=== PATIENT | male | born 1975 | race African-American/Black ===

== ENCOUNTER 2020-02-17 07:12 | Outpatient (REF) | payer MEDICARE, MEDICAID, SELFPAY | END 2020-02-17 07:13 | disposition home or self-care (01) | LOC: HO.LAB 07:12 | PROVIDERS: Visit Provider Internal Medicine | DX: Z20.828 Contact with and (suspected) exposure to other viral communicable diseases (principal) | CPT/HCPCS: C9803; U0003 ==

== ENCOUNTER 2020-03-03 08:13 | Outpatient (REF) | payer MEDICARE, MEDICAID, SELFPAY | END 2020-03-03 08:14 | disposition home or self-care (01) | LOC: HO.LAB 08:13 | PROVIDERS: Visit Provider Internal Medicine | DX: Z20.828 Contact with and (suspected) exposure to other viral communicable diseases (principal) | CPT/HCPCS: C9803; U0003 ==

== ENCOUNTER 2020-12-07 09:42 | Outpatient (REF) | payer MEDICARE, MEDICAID, SELFPAY | END 2020-12-07 09:43 | disposition home or self-care (01) | LOC: HO.LAB 09:42 | PROVIDERS: Visit Provider Internal Medicine | DX: Z20.822 Contact with and (suspected) exposure to COVID-19 (principal) | CPT/HCPCS: C9803; U0003; U0005 ==

== ENCOUNTER 2021-05-20 11:04 | Inpatient (IN) | payer MEDICARE, MEDICAID, SELFPAY ==
[2021-05-20 11:13] VITALS: BP 110/70; BP 130/85; PULSE 86; PULSE 95; RESP 18; TEMP 36.5; O2SAT 96; O2SAT 98; BMI 26.9
[2021-05-20 12:01] LABS: Appearance Urine CLEAR; Color Urine YELLOW; Glucose Urine UA NEG (NEG); Leukocyte Esterase Urine NEG (NEG); Nitrite Urine NEG (NEG); PH 5.5 (5.0-8.0); Specific Gravity - Urine >= 1.030 (1.005-1.025); Urine Blood NEG (NEG); Urine Ketones NEG (NEG); Urine Protein NEG (NEG-TRACE)
[2021-05-20 12:03] LABS: MANUAL DIFF FLAG NO
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
[2021-05-20 12:06] LABS: Amphetamine Screen Urine Not Detected (Not Detect); Barbiturates, Urine Not Detected (Not Detect); Benzodiazepines Screen Urine Not Detected (Not Detect); Cannabinoid Screen Urine POSITIVE (Not Detect); Cocaine Screen Urine Not Detected (Not Detect); Fentanyl, urine Not Detected (Not Detect); Opiate Screen Urine Not Detected (Not Detect); Phencyclidine Screen Urine Not Detected (Not Detect)
[2021-05-20 12:06] LABS: Basophils Absolute Auto 0.1 X10*3/uL (0.0-0.2); Basophils Percent Auto 1.5 % (0-2); Hematocrit 47.8 % (42.0-52.0); Hemoglobin 16.2 g/dl (14.0-18.0); Imm Gran Abs Auto 0.01 X10*3/uL (0.00-0.03); Imm Gran Pct Auto 0.3 % (0.0-0.4); Lymphocytes Absolute Auto 1.9 X10*3/uL (1.2-4.9); Lymphocytes Percent Auto 49.1 % (20-40); Mean Corpuscular HGB Conc 33.9 g/dl (31.0-36.0); Mean Corpuscular Hemoglobin 32.5 pg (27.0-33.0); Mean Corpuscular Volume 95.8 fL (80.0-98.0); Mean Platelet Volume 8.7 fL (9.4-12.4); Monocytes Absolute Auto 0.3 X10*3/uL (0.1-1.2); Monocytes Percent Auto 6.6 % (2-11); Neutrophils Absolute Auto 1.6 x10*3/uL (2.0-8.3); Neutrophils Percent Auto 41.5 % (45-73); Platelet Count 242 X10*3/uL (160-400); Red Blood Count 4.99 X10*6/uL (4.60-5.80); Red Cell Distribution Width 13.6 % (11.0-16.0)
[2021-05-20 12:21] LABS: Anion Gap 13 (12-20); Blood Urea Nitrogen 14 mg/dL (9-16); Calcium 9.5 mg/dL (8.4-10.2); Carbon Dioxide 29 mmol/L (22-29); Chloride 102 mmol/L (96-108); Creatinine Clr Calc Pharmacy 99.4; Estimated Glomerular Filt Rate > 60; Glucose Random 93 mg/dL (60-115); Potassium 4.4 mmol/L (3.3-5.1); Sodium 140 mmol/L (135-145)
[2021-05-20 13:54] VITALS: BP 100/69; PULSE 68; RESP 16; O2SAT 94
[2021-05-20 14:42] LABS: COVID-19 Test Negative (Negative); IDNOW Serial# 08D9AD1C
--- NOTE | 2021-05-20 14:49 | PC.NURSE ---
rn to rn given jarrett, pt aware of plan of care for transfer to pod.
[2021-05-20] MEDS: LORazepam 1 MG TABLET PO (17:04)
[2021-05-20 17:43] LABS: Ethanol 80 mg/dL
--- NOTE | 2021-05-20 19:29 | PHA.MEDREC ---
Pharmacy Consult ? Medication Reconciliation Pharmacy has completed the medication reconciliation. pt reports trazodone dose lowered to 50 mg. pt takes sertraline at lunch. He also reports taking gabapentin but has not been filled since September. Pt has not taken any of his medications in about 2 weeks.
[2021-05-20 21:50] VITALS: BP 145/95; PULSE 95; RESP 18; O2SAT 98
[2021-05-20] MEDS: Gabapentin 300 MG CAPSULE PO (23:19)
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
[2021-05-21] MEDS: Multivitamin TABLET 1 TAB PO (08:28)
[2021-05-21] MEDS: Gabapentin 300 MG CAPSULE PO ×3 (08:28→21:34)
[2021-05-21] MEDS: NaPROXEN 500 MG TABLET PO ×2 (08:28→21:34)
[2021-05-21 08:41] VITALS: BP 131/81; PULSE 74; RESP 17; TEMP 36.9; O2SAT 99
[2021-05-21 08:48] LABS: Cholesterol 331 mg/dL; HDL Cholesterol 82 mg/dL; Magnesium 2.1 mg/dL (1.6-2.6); Triglycerides 419 mg/dL
[2021-05-21 08:59] LABS: Estimated Average Glucose 100 mg/dL; Hemoglobin A1c % 5.1 %
[2021-05-21 09:07] LABS: Thyroid Stimulating Hormone 4.18 uIU/mL (0.32-4.0)
--- NOTE | 2021-05-21 12:46 | MHC.RECOVSUP ---
TRY TO MEET WITH PT. TWO TIMES PT.WAS BEING SEEN BY THE DOCTOR THE FIRST. AND THE SECOND TIME HE STATED THAT HW WAS BUSY. THIS ARCHITECT WAS ABLE TO LEAVE MY CARD WITH STAFF.
[2021-05-21 13:08] LABS: Folate 13.3 ng/mL (> or = 4.0); Vitamin B12 357 pg/mL (200-900)
[2021-05-21] MEDS: Sertraline HCL 50 MG TABLET PO (14:04)
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
[2021-05-21 21:20] VITALS: BP 150/92; PULSE 97; TEMP 36.2; O2SAT 98
[2021-05-21] MEDS: hydrOXYzine HCL 25 MG TABLET PO (21:35)
[2021-05-21] MEDS: Doxazosin Mesylate 1 MG TABLET PO (21:36)
[2021-05-22] MEDS: Multivitamin TABLET 1 TAB PO (08:24)
[2021-05-22] MEDS: Gabapentin 300 MG CAPSULE PO ×3 (08:24→20:50)
[2021-05-22] MEDS: NaPROXEN 500 MG TABLET PO ×2 (08:24→20:51)
[2021-05-22 08:33] VITALS: BP 135/82; PULSE 76; RESP 18; TEMP 36.4; O2SAT 97
--- NOTE | 2021-05-22 09:54 | HO.PSYCHPN ---
Subjective Subjective Date of Service: 05/22/21 Reason For Visit: Depression, SI Subjective Notes: Conditional Voluntary Medical Problems Affecting Mental Status: No Interim History: pt reports he did not sleep well last night. does not think he started doxazosin yet. discussed medication purpose and expected results. He is afraid to take zyprexa with it until he gets used to/familiar with response to sleep meds Medication Compliance: Intermittent Side effects from medications: No Attending Groups: Intermittent Review of Systems Acute medical concerns: No Medical Review of Systems: unchanged Review of Systems Review of Systems no changes Mental Status Exam Mental Status Exam Narrative: appropriately dressed and groomed. cooperative with interview, anxious, speech nml rate, amount, tone, latency. thoughts linear and logical without evidence of paranoia or delusions. affect constricted, normo-intense, non-labile, consistent with context. mood depressed and anxious. reports SI with no paln or intent. denies HI. denies AH, Judgement: Fair Diagnostics Vital Signs (24Hr): Vital Signs - 24 hr 05/21/21 21:20 05/22/21 08:33 Temperature 97.2 F 97.6 F Pulse Rate 97 76 Respiratory Rate 18 Blood Pressure 150/92 H 135/82 Pulse Oximetry 98 97 BMI result Body Mass Index 26.9 Labs Results: 05/20/21 11:58 05/20/21 11:58 Labs: Laboratory Results - last 48 hr 05/20/21 05/20/21 05/20/21 11:41 11:41 11:58 WBC 4.0 L RBC 4.99 Hgb 16.2 Hct 47.8 MCV 95.8 MCH 32.5 MCHC 33.9 RDW 13.6 Plt Count 242 MPV 8.7 L Immature Gran % (Auto) 0.3 Neut % (Auto) 41.5 L Lymph % (Auto) 49.1 H [place] % (Auto) 6.6 Eos % (Auto) 1.0 Baso % (Auto) 1.5 Lymph # (Auto) 1.9 [place] # (Auto) 0.3 Eos # (Auto) 0.0 Baso # (Auto) 0.1 Abs Immat Gran (auto) 0.01 Absolute Neuts (auto) 1.6 L Absolute Nucleated RBC 0.000 Nucleated RBC % (auto) 0.0 Sodium Potassium Chloride Carbon Dioxide Anion Gap BUN Creatinine Estim Creat Clear Calc Estimated GFR Random Glucose Estimat Average Glucose Hemoglobin A1c % Calcium Magnesium Triglycerides Cholesterol LDL Cholesterol, Calc HDL Cholesterol Vitamin B12 Folate TSH Free T4 Urine Color YELLOW Urine Appearance CLEAR Urine pH 5.5 Ur Specific [place] >= 1.030 H Urine Protein NEG Urine Glucose (UA) NEG Urine Ketones NEG Urine Blood NEG Urine Nitrite NEG Ur Leukocyte Esterase NEG Urine Opiates Screen Not Detected Urine Fentanyl Screen Not Detected Ur Barbiturates Screen Not Detected Ur Phencyclidine Scrn Not Detected Ur Amphetamines Screen Not Detected U Benzodiazepines Scrn Not Detected Urine Cocaine Screen Not Detected U Marijuana (THC) Screen POSITIVE H Ethyl Alcohol COVID-19 ([facility]) COVID-19 Clin Com 05/20/21 05/20/21 05/20/21 11:58 14:20 17:16 WBC RBC Hgb Hct MCV MCH MCHC RDW Plt Count MPV Immature Gran % (Auto) Neut % (Auto) Lymph % (Auto) [place] % (Auto) Eos % (Auto) Baso % (Auto) Lymph # (Auto) [place] # (Auto) Eos # (Auto) Baso # (Auto) Abs Immat Gran (auto) Absolute Neuts (auto) Absolute Nucleated RBC Nucleated RBC % (auto) Sodium 140 Potassium 4.4 Chloride 102 Carbon Dioxide 29 Anion Gap 13 BUN 14 Creatinine 1.01 Estim Creat Clear Calc 99.4 Estimated GFR > 60 Random Glucose 93 Estimat Average Glucose Hemoglobin A1c % Calcium 9.5 Magnesium Triglycerides Cholesterol LDL Cholesterol, Calc HDL Cholesterol Vitamin B12 Folate TSH Free T4 Urine Color Urine Appearance Urine pH Ur Specific [place] Urine Protein Urine Glucose (UA) Urine Ketones Urine Blood Urine Nitrite Ur Leukocyte Esterase Urine Opiates Screen Urine Fentanyl Screen Ur Barbiturates Screen Ur Phencyclidine Scrn Ur Amphetamines Screen U Benzodiazepines Scrn Urine Cocaine Screen U Marijuana (THC) Screen Ethyl Alcohol 80 COVID-19 ([facility]) Negative COVID-19 Clin Com See Note 05/21/21 05/21/21 05/21/21 08:16 08:16 08:16 WBC RBC Hgb Hct MCV MCH MCHC RDW Plt Count MPV Immature Gran % (Auto) Neut % (Auto) Lymph % (Auto) [place] % (Auto) Eos % (Auto) Baso % (Auto) Lymph # (Auto) [place] # (Auto) Eos # (Auto) Baso # (Auto) Abs Immat Gran (auto) Absolute Neuts (auto) Absolute Nucleated RBC Nucleated RBC % (auto) Sodium Potassium Chloride Carbon Dioxide Anion Gap BUN Creatinine Estim Creat Clear Calc Estimated GFR Random Glucose Estimat Average Glucose 100 Hemoglobin A1c % 5.1 Calcium Magnesium 2.1 Triglycerides 419 Cholesterol 331 LDL Cholesterol, Calc TNP HDL Cholesterol 82 Vitamin B12 357 Folate 13.3 TSH 4.18 H Free T4 1.00 Urine Color Urine Appearance Urine pH Ur Specific [place] Urine Protein Urine Glucose (UA) Urine Ketones Urine Blood Urine Nitrite Ur Leukocyte Esterase Urine Opiates Screen Urine Fentanyl Screen Ur Barbiturates Screen Ur Phencyclidine Scrn Ur Amphetamines Screen U Benzodiazepines Scrn Urine Cocaine Screen U Marijuana (THC) Screen Ethyl Alcohol COVID-19 ([facility]) COVID-19 Clin Com Medications Medications Current Medications Acetaminophen (Acetaminophen 325 Mg Tablet) 650 mg PO Q6H PRN PRN Reason: Headache/Pain Mild Scale (1-3) Al Hydroxide/Mg Hydroxide (Magnesium Hydrox/Alum Hydrox 30 Ml Oral.Susp) 30 ml PO Q6H PRN PRN Reason: Heartburn/Nausea Doxazosin Mesylate (Doxazosin Mesylate 1 Mg Tablet) 1 mg PO BEDTIME [facility]; Protocol Last Admin: 05/21/21 21:36 Dose: 1 mg Documented by: Gabapentin (Gabapentin 300 Mg Capsule) 300 mg PO TID DI[facility] Last Admin: 05/22/21 08:24 Dose: 300 mg Documented by: Hydroxyzine HCl (Hydroxyzine Hcl 25 Mg Tablet) 25 mg PO Q6H PRN PRN Reason: Anxiety Last Admin: 05/21/21 21:35 Dose: 25 mg Documented by: Lorazepam (Lorazepam 1 Mg Tablet) 1 mg PO Q4H PRN PRN Reason: CIWA > 7 and < 15 Lorazepam (Lorazepam 1 Mg Tablet) 2 mg PO Q4H PRN PRN Reason: CIWA > 14 Magnesium Hydroxide (Milk Of Magnesia 30 Ml Oral.Susp) 30 ml PO DAILY PRN PRN Reason: Constipation Multivitamins/Vitamin C (Multivitamin Tablet) 1 tab PO DAILY [facility] Last Admin: 05/22/21 08:24 Dose: 1 tab Documented by: Naproxen (Naproxen 500 Mg Tablet) 500 mg PO BID [facility] Last Admin: 05/22/21 08:24 Dose: 500 mg Documented by: Olanzapine (Olanzapine 7.5 Mg Tablet) 7.5 mg PO BEDTIME [facility] Last Admin: 05/21/21 22:58 Dose: Not Given Documented by: Sertraline HCl (Sertraline Hcl 50 Mg Tablet) 50 mg PO DAILY@1200 [facility] Last Admin: 05/21/21 14:04 Dose: 50 mg Documented by: Trazodone HCl (Trazodone Hcl 50 Mg Tablet) 50 mg PO BEDTIME PRN PRN Reason: Insomnia Allergies Allergies Allergy/AdvReac Type Severity Reaction Status Date / Time divalproex sodium Allergy Fainting Verified 05/20/21 11:48 [From Depakote] Assessment & Plan Assessment & Plan (1) Major depressive disorder with psychotic features: Status: Acute Code(s): F32.3 - Major depressive disorder, single episode, severe with psychotic features (2) Chronic post-traumatic stress disorder (PTSD): Status: Acute Code(s): F43.12 - Post-traumatic stress disorder, chronic Plan MDD, PTSD, alcohol use disorder Continue plan: alcohol - CIWA with ativan PRN until clear pt is not physiologically dependent. MDD - restart pt's prior regimen of zoloft and zyprexa. PTSD - start doxazosin and titrate as indicated to control BP and nightmares, aid sleep. do not restart prior outpt medication of trazodone 50 mg QHS; PRN available for now. chronic pain - naprosyn 500 BID. dispo - pending inpt stabilization. I spent __15____ minutes with the patient and/or on the patient floor today, greater than?50% of which was spent counseling/coordinating care. Patient educated on: medication risk/benefits and therapeutic strategies Informed Consent: further education needed Reason for contiued inpatient stay Substantial Risk for: harm to self, inability to function and rapid decompensation
[2021-05-22] MEDS: Sertraline HCL 50 MG TABLET PO (12:00)
[2021-05-22 20:47] VITALS: BP 128/80; PULSE 93; TEMP 36.6; O2SAT 95
[2021-05-22] MEDS: Doxazosin Mesylate 1 MG TABLET PO (20:50)
[2021-05-22] MEDS: hydrOXYzine HCL 25 MG TABLET PO (20:50)
[2021-05-23 08:40] VITALS: BP 116/70; PULSE 78; RESP 16; TEMP 36.6; O2SAT 98
[2021-05-23] MEDS: NaPROXEN 500 MG TABLET PO ×2 (09:20→21:26)
[2021-05-23] MEDS: Multivitamin TABLET 1 TAB PO (09:20)
[2021-05-23] MEDS: Gabapentin 300 MG CAPSULE PO ×3 (09:20→21:26)
--- NOTE | 2021-05-23 10:48 | HO.PSYCHPN ---
Subjective Subjective Date of Service: 05/23/21 Reason For Visit: Depression, SI Subjective Notes: Conditional Voluntary Interim History: pt statees he still did not sleep well, did not take zyprexa due to fears of oversedation. he agrees to take tonight. verbalizes feeling wary of meds. He denies side effects from doxazosin. He denies ETOH WD symptoms Medication Compliance: Intermittent Side effects from medications: No Attending Groups: No Review of Systems Acute medical concerns: No Medical Review of Systems: unchanged Review of Systems Review of Systems no changes Mental Status Exam Mental Status Exam Narrative: appropriately dressed and groomed. cooperative with interview, anxious, speech nml rate, amount, tone, latency. thoughts linear and logical without evidence of paranoia or delusions. affect constricted, normo-intense, non-labile, consistent with context. mood depressed and anxious. reports SI with no paln or intent. denies HI. denies AH, Diagnostics Vital Signs (24Hr): Vital Signs - 24 hr 05/22/21 20:47 05/23/21 08:40 Temperature 97.8 F 97.8 F Pulse Rate 93 78 Respiratory Rate 16 Blood Pressure 128/80 116/70 Pulse Oximetry 95 98 BMI result Body Mass Index 26.9 Labs Results: 05/20/21 11:58 05/20/21 11:58 Labs: Laboratory Results - last 48 hr 05/21/21 08:16 Vitamin B12 357 Folate 13.3 Medications Medications Current Medications Acetaminophen (Acetaminophen 325 Mg Tablet) 650 mg PO Q6H PRN PRN Reason: Headache/Pain Mild Scale (1-3) Al Hydroxide/Mg Hydroxide (Magnesium Hydrox/Alum Hydrox 30 Ml Oral.Susp) 30 ml PO Q6H PRN PRN Reason: Heartburn/Nausea Doxazosin Mesylate (Doxazosin Mesylate 1 Mg Tablet) 1 mg PO BEDTIME [facility]; Protocol Last Admin: 05/22/21 20:50 Dose: 1 mg Documented by: Gabapentin (Gabapentin 300 Mg Capsule) 300 mg PO TID [facility] Last Admin: 05/23/21 09:20 Dose: 300 mg Documented by: Hydroxyzine HCl (Hydroxyzine Hcl 25 Mg Tablet) 25 mg PO Q6H PRN PRN Reason: Anxiety Last Admin: 05/22/21 20:50 Dose: 25 mg Documented by: Lorazepam (Lorazepam 1 Mg Tablet) 1 mg PO Q4H PRN PRN Reason: CIWA > 7 and < 15 Lorazepam (Lorazepam 1 Mg Tablet) 2 mg PO Q4H PRN PRN Reason: CIWA > 14 Magnesium Hydroxide (Milk Of Magnesia 30 Ml Oral.Susp) 30 ml PO DAILY PRN PRN Reason: Constipation Multivitamins/Vitamin C (Multivitamin Tablet) 1 tab PO DAILY [facility] Last Admin: 05/23/21 09:20 Dose: 1 tab Documented by: Naproxen (Naproxen 500 Mg Tablet) 500 mg PO BID [facility] Last Admin: 05/23/21 09:20 Dose: 500 mg Documented by: Olanzapine (Olanzapine 7.5 Mg Tablet) 7.5 mg PO BEDTIME [facility] Last Admin: 05/22/21 21:10 Dose: Not Given Documented by: Sertraline HCl (Sertraline Hcl 50 Mg Tablet) 50 mg PO DAILY@1200 [facility] Last Admin: 05/22/21 12:00 Dose: 50 mg Documented by: Trazodone HCl (Trazodone Hcl 50 Mg Tablet) 50 mg PO BEDTIME PRN PRN Reason: Insomnia Allergies Allergies Allergy/AdvReac Type Severity Reaction Status Date / Time divalproex sodium Allergy Fainting Verified 05/20/21 11:48 [From Depakote] Assessment & Plan Assessment & Plan (1) Major depressive disorder with psychotic features: Status: Acute Code(s): F32.3 - Major depressive disorder, single episode, severe with psychotic features (2) Chronic post-traumatic stress disorder (PTSD): Status: Acute Code(s): F43.12 - Post-traumatic stress disorder, chronic Plan MDD, PTSD, alcohol use disorder Continue plan: D/C CIWA scale- no WD symptoms MDD - restart pt's prior regimen of zoloft and zyprexa. Encourage pt to start meds PTSD - start doxazosin and titrate as indicated to control BP and nightmares, aid sleep. do not restart prior outpt medication of trazodone 50 mg QHS; PRN available for now. chronic pain - naprosyn 500 BID. dispo - pending inpt stabilization. I spent __15____ minutes with the patient and/or on the patient floor today, greater than?50% of which was spent counseling/coordinating care. Reason for contiued inpatient stay Substantial Risk for: harm to self, inability to function and rapid decompensation
[2021-05-23] MEDS: Sertraline HCL 50 MG TABLET PO (12:44)
[2021-05-23 18:00] VITALS: BP 138/88; PULSE 94; RESP 18; TEMP 36.7; O2SAT 98
[2021-05-23] MEDS: OLANZapine 7.5 MG TABLET PO (21:26)
[2021-05-23] MEDS: hydrOXYzine HCL 25 MG TABLET PO (21:27)
[2021-05-24] MEDS: NaPROXEN 500 MG TABLET PO ×2 (09:46→21:17)
[2021-05-24] MEDS: Multivitamin TABLET 1 TAB PO (09:47)
[2021-05-24] MEDS: Gabapentin 300 MG CAPSULE PO ×3 (09:47→21:18)
[2021-05-24 09:58] VITALS: BP 126/93; PULSE 70; RESP 18; TEMP 36.4; O2SAT 98
[2021-05-24] MEDS: Sertraline HCL 50 MG TABLET PO (13:00)
--- NOTE | 2021-05-24 14:20 | P.PNPSI_ITS ---
Subjective Subjective Date of Service: 05/24/21 Reason For Visit: Depression, SI Interim History: pt reports poor sleep tato night but better sleep last night. interested in increasing doxazosin to 2 mg tonight for nightmares and HTN. planning to discharge tomorrow. per staff, slept 8 hours overnight. feeling well yesterday. relaxed, easy to engage. attending groups, eating well. had visitor. no SI/HI. gabapentin and naproxen adequate for his pain. CIWA DCed as pt was not scoring. Mental Status Exam Mental Status Exam Narrative: appropriately dressed and groomed. cooperative with interview, speech nml rate, amount, tone, latency. thoughts linear and logical without evidence of paranoia or delusions. affect flexible, normo-intense, non-labile, consistent with buck xt. mood improved. no SI. no HI/AVH expressed. Diagnostics Vital Signs (24Hr): Vital Signs - 24 hr 05/23/21 18:00 05/24/21 09:58 Temperature 98.1 F 97.6 F Pulse Rate 94 70 Respiratory Rate 18 18 Blood Pressure 138/88 126/93 H Pulse Oximetry 98 98 BMI result Body Mass Index 26.9 Labs Results: 05/20/21 11:58 05/20/21 11:58 Medications Medications Current Medications Acetaminophen (Acetaminophen 325 Mg Tablet) 650 mg PO Q6H PRN PRN Reason: Headache/Pain Mild Scale (1-3) Al Hydroxide/Mg Hydroxide (Magnesium Hydrox/Alum Hydrox 30 Ml Oral.Susp) 30 ml PO Q6H PRN PRN Reason: Heartburn/Nausea Doxazosin Mesylate (Doxazosin Mesylate 2 Mg Tablet) 2 mg PO BEDTIME [facility]; Protocol Gabapentin (Gabapentin 300 Mg Capsule) 300 mg PO TID [facility] Last Admin: 05/24/21 09:47 Dose: 300 mg Documented by: Hydroxyzine HCl (Hydroxyzine Hcl 25 Mg Tablet) 25 mg PO Q6H PRN PRN Reason: Anxiety Last Admin: 05/23/21 21:27 Dose: 25 mg Documented by: Lorazepam (Lorazepam 1 Mg Tablet) 1 mg PO Q4H PRN PRN Reason: CIWA > 7 and < 15 Lorazepam (Lorazepam 1 Mg Tablet) 2 mg PO Q4H PRN PRN Reason: CIWA > 14 Magnesium Hydroxide (Milk Of Magnesia 30 Ml Oral.Susp) 30 ml PO DAILY PRN PRN Reason: Constipation Multivitamins/Vitamin C (Multivitamin Tablet) 1 tab PO DAILY [facility] Last Admin: 05/24/21 09:47 Dose: 1 tab Documented by: Naproxen (Naproxen 500 Mg Tablet) 500 mg PO BID [facility] Last Admin: 05/24/21 09:46 Dose: 500 mg Documented by: Olanzapine (Olanzapine 7.5 Mg Tablet) 7.5 mg PO BEDTIME [facility] Last Admin: 05/23/21 21:26 Dose: 7.5 mg Documented by: Sertraline HCl (Sertraline Hcl 50 Mg Tablet) 50 mg PO DAILY@1200 [facility] Last Admin: 05/24/21 13:00 Dose: 50 mg Documented by: Trazodone HCl (Trazodone Hcl 50 Mg Tablet) 50 mg PO BEDTIME PRN PRN Reason: Insomnia Allergies Allergies Allergy/AdvReac Type Severity Reaction Status Date / Time divalproex sodium Allergy Fainting Verified 05/20/21 11:48 [From Depakote] Assessment & Plan Assessment & Plan (1) Major depressive disorder with psychotic features: Status: Acute Code(s): F32.3 - Major depressive disorder, single episode, severe with psychotic features (2) Chronic post-traumatic stress disorder (PTSD): Status: Acute Code(s): F43.12 - Post-traumatic stress disorder, chronic Plan MDD, PTSD, alcohol use disorder Continue plan: D/C CIWA scale- no WD symptoms MDD - restart pt's prior regimen of zoloft and zyprexa. Encourage pt to start meds PTSD - start doxazosin and titrate as indicated to control BP and nightmares, aid sleep; increased to 2 mg QHS as of 05/24. do not restart prior outpt medication of trazodone 50 mg QHS; PRN available for now. chronic pain - naprosyn 500 BID. dispo - tomorrow. I spent ___25___ minutes with the patient and/or on the patient floor today, greater than?50% of which was spent counseling/coordinating care. Reason for contiued inpatient stay Substantial Risk for: inability to function and rapid decompensation
[2021-05-24 18:00] VITALS: BP 140/82; PULSE 92; RESP 18; TEMP 36.2; O2SAT 97
[2021-05-24] MEDS: OLANZapine 7.5 MG TABLET PO (21:17)
[2021-05-25] MEDS: Multivitamin TABLET 1 TAB PO (09:24)
[2021-05-25] MEDS: NaPROXEN 500 MG TABLET PO (09:24)
[2021-05-25] MEDS: Gabapentin 300 MG CAPSULE PO ×2 (09:25→15:21)
[2021-05-25 10:08] VITALS: BP 156/86; PULSE 77; RESP 18; TEMP 36.6; O2SAT 100
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
[2021-05-25] MEDS: Sertraline HCL 50 MG TABLET PO (13:44)
--- NOTE | 2021-05-25 16:32 | PC.NURSE ---
Patient alert, oriented x3. Gait steady, denies SI/HI, denies AH/VH, reports he feels ready for discharge. Reviewed discharge instructions w/ patient- patient verbalized understanding, no concerns or questions asked. . [ End ]
== END 2021-05-25 16:33 | disposition home or self-care (01) | DRG 885 ==
LOC: HO.ED 18:39 → HO.PADLT16 21:19
PROVIDERS: Nurse Practitioner Family; Registered Nurse; Admitting Provider Psychiatry & Neurology Psychiatry; Emergency Provider Emergency Medicine; Visit Provider Psychiatry & Neurology Psychiatry
DX: F32.3 Major depressive disorder, single episode, severe with psychotic features (principal); R45.851 Suicidal ideations; G89.29 Other chronic pain; F43.12 Post-traumatic stress disorder, chronic; Z20.822 Contact with and (suspected) exposure to COVID-19; Z79.1 Long term (current) use of non-steroidal anti-inflammatories (NSAID); Z79.899 Other long term (current) drug therapy
CPT/HCPCS: 36415; 80048; 80061; 80307; 81003; 82077; 82607; 82746; 83036; 83735; 84439; 84443; 85025; 87635; 99285